=== PATIENT | male | born 1965 | race Caucasian/White ===

== ENCOUNTER 2016-10-04 22:45 | Emergency (ER) | payer MEDICAID ==
[~2016-10-04] VITALS: Ht 170.2 cm; Wt 95.3 kg
[2016-10-05] MEDS ORDERED: TETANUS-DIPTH-ACEL PERTUSSIS 0.5ML SYRG IM ONE (05:30)
[2016-10-05] MEDS ORDERED: MORPHINE SULFATE 4 MG/ML SYRG IV ONE (05:30)
[2016-10-05] MEDS ORDERED: ONDANSETRON HCL 4 MG/2 ML VIAL IV ONE (05:30)
[2016-10-05] MEDS ORDERED: LIDOCAINE 2%HCL (LOCAL ANESTH.) INJ 20ML MDV ONE (06:52)
[2016-10-05] MEDS ORDERED: LIDOCAINE HCL 100 MG/5ML (2%) SYRG INJ IV ONE (07:00)
[2016-10-05] MEDS ORDERED: BACITRACIN TOP OINT 1 UD PKG TOP ONE ×2 (07:17→07:30)
[2016-10-05 08:39] VITALS: BP 137/100
== END 2016-10-05 08:39 | disposition home or self-care (01) ==
LOC: ER 22:46
DX: S61.021A Laceration with foreign body of right thumb without damage to nail, initial encounter (principal); S60.011A Contusion of right thumb without damage to nail, initial encounter; F17.210 Nicotine dependence, cigarettes, uncomplicated; F12.10 Cannabis abuse, uncomplicated; F11.10 Opioid abuse, uncomplicated; Z23 Encounter for immunization; W19.XXXA Unspecified fall, initial encounter; Y93.89 Activity, other specified; Y99.8 Other external cause status; Y92.009 Unspecified place in unspecified non-institutional (private) residence as the place of occurrence of the external cause
CPT/HCPCS: 12042; 73120; 90471; 90715; 96374; 96375; 99285; J2270; J2405